=== PATIENT | female | born 1990 | race Caucasian/White ===

== ENCOUNTER 2020-05-08 04:00 | Emergency (ER) | payer BC, SELFPAY ==
[2020-05-08 03:59] VITALS: BP 124/92; PULSE 90; RESP 16; TEMP 37.2; O2SAT 100
--- NOTE | 2020-05-08 04:05 | ED.NAVMDI ---
HPI - Nausea/Vomiting/Diarrhea General Chief complaint: Nausea/Vomiting/Diarrhea Stated complaint: n/v/d Source: patient and EMS Mode of arrival: EMS Limitations: no limitations History of Present Illness HPI Narrative: A 30-year-old female presents to the emergency room [facility] with EMS for complaints of nausea vomiting and diarrhea. Patient notes that she has a allergy to hops, barley and wheat. She notes that she started having her symptoms after eating a roast beef sandwich and drinking 2 beers. Patient states it was the anniversary of her father's and she wanted to have a beer with family members to honor his memory. Patient states that she has been vomiting every hour on the hour since then. She does note that there have been a little traces of blood, streaks at mildest in her vomit. Related Data Allergies Allergy/AdvReac Type Severity Reaction Status Date / Time No Known Allergies Allergy Verified 05/08/20 04:05 Review of Systems Review of Systems: Narrative: CONSTITUTIONAL: Denies fever, chills, or sweats. EYES: Denies visual changes, redness, or discharge. ENT: Denies rhinorrhea, congestion, sore throat, or otalgia. CARDIOVASCULAR: Denies chest pain, palpitations, or edema. RESPIRATORY: Denies cough or dyspnea. GASTROINTESTINAL: Endorses abdominal pain, nausea, vomiting, or diarrhea. GENITOURINARY: Denies dysuria or hematuria. SKIN: Denies rash or itching. MUSCULOSKELETAL: Denies back pain, joint pain, or myalgia. NEUROLOGIC: Denies headache, numbness, dizziness, or weakness. PSYCHIATRIC: Denies anxiety or depression. Exam Narrative: Exam Narrative: GENERAL: Well-appearing, well-nourished, and in no acute distress. HEAD: Normocephalic, atraumatic. EYES: PERRLA and EOMI. ENT: Nares clear, no rhinorrhea or epistaxis. Mucous membranes moist. NECK: Supple. No adenopathy or masses. No carotid bruits or JVD CHEST: Clear to auscultation. No respiratory distress. No wheezes rales or rhonchi HEART: Regular rate and rhythm. No murmur heard. Normal peripheral pulses. ABDOMEN: Soft, nontender, nondistended, normal active bowel sounds. EXTREMITIES: Normal range of motion. No edema. SKIN: Warm, dry, no rash. NEURO: No focal deficits. Alert and oriented x3. PSYCH: Normal mood and affect. Course Reevaluation(s) Reevaluation #1: Patient was treated as though she was having allergic reaction given Zofran, Benadryl, Solu-Medrol and famotidine. This did work to calm her symptoms somewhat but she was still complaining of some mild nausea. After a period of observation of approximately 20 to 30 minutes she was still complaining of nausea. Patient was then given 5 mg of Compazine. She was just reevaluated and states that she feels much better and that her symptoms have subsided. Time: 06:27 Vital Signs Vital signs: Vital Signs Temperature 37.2 C 05/08/20 03:59 Pulse Rate 90 05/08/20 03:59 Respiratory Rate 16 05/08/20 03:59 Blood Pressure 124/92 H 05/08/20 03:59 Pulse Oximetry 100 05/08/20 03:59 Temperature 37.2 C 05/08/20 03:59 Pulse Rate 90 05/08/20 04:56 Respiratory Rate 16 05/08/20 04:56 Blood Pressure 127/92 H 05/08/20 04:56 Pulse Oximetry 97 05/08/20 04:56 MDM - Nausea/Vomiting/Diarrhea MDM Narrative Medical decision making narrative: In brief this is a 30-year-old female who came into the emergency department with an essentially what was a allergic reaction. Patient has celiac disease, gluten intolerance, ate a roast beef sandwich and had 2 beers. Patient came in very nauseous and feeling unwell. She was treated symptomatically and did improve. Patient will be discharged with symptomatic medications. Discharge Plan Discharge Clinical Impression: Nausea and vomiting Qualifiers: Vomiting type: unspecified Vomiting Intractability: non-intractable Qualified Code(s): R11.2 - Nausea with vomiting, unspecified Allergic reaction to food Qualifiers: Encounter type: initial en
[2020-05-08] MEDS: ONDANSETRON INJ 4 MG/2 ML VIAL IV PUSH (04:17)
[2020-05-08] MEDS: methylPREDNISolone SOD SUCC 125 MG VIAL IV PUSH (04:18)
[2020-05-08] MEDS: diphenhydrAMINE HCl INJ 50 MG/ML VIAL IV PUSH (04:18)
[2020-05-08] MEDS: FAMOTIDINE 20 MG/2 ML VIAL 40 MG IV PUSH (04:18)
[2020-05-08 04:56] VITALS: BP 127/92; PULSE 90; RESP 16; O2SAT 97
[2020-05-08] MEDS: PROCHLORPERAZINE EDISYLATE 10 MG/2 ML VIAL 5 MG IV PUSH (05:06)
--- NOTE | 2020-05-08 05:31 | PC.NURSE ---
pt states she is no longer nauseated. states her throat is still sore.
[2020-05-08 06:38] VITALS: BP 118/74; PULSE 87; RESP 16; O2SAT 99
== END 2020-05-08 06:39 | disposition home or self-care (01) ==
PROVIDERS: Emergency Provider Emergency Medicine
DX: R11.2 Nausea with vomiting, unspecified (principal); T78.1XXA Other adverse food reactions, not elsewhere classified, initial encounter; K90.0 Celiac disease
CPT/HCPCS: 96374; 96375; 99284; J0780; J1200; J2405; J2930